=== PATIENT | male | born 1980 | race African-American/Black ===

== ENCOUNTER 2018-10-16 12:08 | Emergency (ER) | payer MEDICAID ==
[~2018-10-16] VITALS: Ht 180.3 cm; Wt 88.0 kg
[2018-10-16 12:09] VITALS: BP 117/72
== END 2018-10-16 13:30 | disposition left against medical advice (07) ==
LOC: ER 12:08
DX: M79.672 Pain in left foot (principal); V03.90XA Pedestrian on foot injured in collision with car, pick-up truck or van, unspecified whether traffic or nontraffic accident, initial encounter; Y93.01 Activity, walking, marching and hiking; Y92.9 Unspecified place or not applicable; B20 Human immunodeficiency virus [HIV] disease
CPT/HCPCS: 99283

== ENCOUNTER 2020-12-20 09:06 | Emergency (ER) | payer MEDICAID ==
[~2020-12-20] VITALS: Ht 180.3 cm; Wt 101.3 kg
[2020-12-20] MEDS ORDERED: CEFTRIAXONE SODIUM 500 MG/VIAL IM ONE (10:30)
[2020-12-20] MEDS ORDERED: PENICILLIN G BENZATHINE 2,400,000 UNITS/4ML SYR IM ONE (10:30)
[2020-12-20] MEDS ORDERED: LIDOCAINE HCL 1% 20ML VIAL (Pyxis) INJ INFIL ONE (10:30)
[2020-12-20] MEDS ORDERED: DOXYCYCLINE HYCLATE 100MG CAPSULE PO ONE (10:30)
[2020-12-20 10:55] LABS: CLARITY URINE CLEAR (CLEAR); COLOR URINE YELLOW (YELLOW); KETONES URINE TRACE (NEGATIVE); LEUKOCYTE ESTERASE URINE NEGATIVE (NEGATIVE); NITRITE URINE NEGATIVE (NEGATIVE); OCCULT BLOOD URINE NEGATIVE (NEGATIVE); PROTEIN URINE 1+ (NEGATIVE); SPECIFIC GRAVITY URINE 1.029 (1.005-1.030)
[2020-12-20] MEDS ORDERED: DOXY100T2 MT (11:03)
[2020-12-20 11:15] VITALS: BP 139/80
[2020-12-22 04:07] LABS: NEISSERIA GONORRHOEAE NAA Positive (Negative)
== END 2020-12-20 11:16 | disposition home or self-care (01) ==
LOC: ER 09:06
DX: A54.9 Gonococcal infection, unspecified (principal); A74.9 Chlamydial infection, unspecified; A53.9 Syphilis, unspecified; Z98.890 Other specified postprocedural states
CPT/HCPCS: 81003; 87491; 87591; 96372; 99284; J0561; J0696; J3490

== ENCOUNTER 2020-12-29 04:51 | Emergency (ER) | payer MEDICAID, OTHER ==
[~2020-12-29] VITALS: Ht 182.9 cm; Wt 100.0 kg
[~2020-12-29 04:51] MED LIST: DOXY100T2 MT
[2020-12-29] MEDS ORDERED: PENICILLIN G BENZATHINE 2,400,000 UNITS/4ML SYR IM ONE (05:30)
== END 2020-12-29 06:03 | disposition home or self-care (01) ==
LOC: ER 04:51
DX: Z00.00 Encounter for general adult medical examination without abnormal findings (principal); B20 Human immunodeficiency virus [HIV] disease; Z20.2 Contact with and (suspected) exposure to infections with a predominantly sexual mode of transmission; Z98.890 Other specified postprocedural states
CPT/HCPCS: 96372; 99283; J0561; Z7610

== ENCOUNTER 2022-07-20 14:43 | Emergency (ER) | payer MEDICAID, OTHER ==
[~2022-07-20] VITALS: Ht 182.9 cm; Wt 90.0 kg
[2022-07-20] MEDS ORDERED: ACETAMINOPHEN 325MG TABLET PO STA (14:57)
[2022-07-20] MEDS ORDERED: VANCOMYCIN 1G PREMIX 200 ML IV ONE (15:00)
[2022-07-20] MEDS ORDERED: PIPERACILLIN/TAZ 3.375G PREMIX 50 ML IV ONE (15:00)
[2022-07-20] MEDS ORDERED: SODIUM CHLORIDE 0.9% 1000ML BAG (SEPSIS BOLUS) IV ONE (15:00)
[2022-07-20] MEDS ORDERED: ACETAMINOPHEN 325MG TABLET PO NR (17:30)
[2022-07-20] MEDS ORDERED: PIPERACILLIN/TAZ 3.375G PREMIX 50 ML IV NR (17:30)
[2022-07-20 17:44] LABS: CHLORIDE 99 mEq/L (98-107)
[2022-07-20 17:45] LABS: BASOPHILS % 0.2 % (0.0-2.0); HEMATOCRIT. 32.7 % (42.0-52.0); HEMOGLOBIN. 11.1 g/dL (14.0-18.0); LYMPHOCYTES % 9.7 % (20.0-50.0); MEAN CORPUSCULAR HEMOGLOBIN 27.4 pg (28.0-32.0); MEAN CORPUSCULAR VOLUME 81.1 fL (80.0-94.0); MEAN PLATELET VOLUME 7.7 fl (7.4-10.4); MONOCYTES % 5.7 % (2.0-8.0); NEUTROPHILS % 84.4 % (40.0-76.0); PLATELET 257 x1000/uL (130-400); RED BLOOD CELL COUNT 4.04 mill/uL (4.7-6.1); RED CELL DISTRIBUTION WIDTH 15.3 % (11.6-14.6)
[2022-07-20] MEDS ORDERED: OSELTAMIVIR 75MG CAPSULE PO ONE (17:45)
[2022-07-20 20:00] VITALS: BP 107/67
== END 2022-07-20 21:47 | disposition short-term general hospital (02) ==
LOC: ER 15:17 → EDBEDREQSVC 16:04 → EDBEDREQTM 16:04 → EDBEDREQ 16:04 → EDBEDREQTM 19:16 → EDBEDREQ 19:16 → CANBEDREQ 19:25 → ER 21:47
DX: A41.9 Sepsis, unspecified organism (principal); J18.9 Pneumonia, unspecified organism
CPT/HCPCS: 36415; 71045; 80053; 83605; 84484; 85025; 87040; 87804; 93005; 96361; 96365; 96368; 99285; J2543; J3370; J7030

== ENCOUNTER 2022-11-17 22:07 | Emergency (ER) | payer OTHER ==
[~2022-11-17] VITALS: Ht 185.4 cm; Wt 100.0 kg
[2022-11-17 22:11] VITALS: O2SAT 98
[2022-11-17] MEDS ORDERED: AMOX1TAB16 MT (23:12)
[2022-11-17] MEDS ORDERED: TETANUS, DIPHTHERIA, PERTUSSIS VAC/PF 0.5ML (>10YR OLD) IM ONE (23:15)
[2022-11-17] MEDS ORDERED: AMOXICILLIN/POTASSIUM CLAVULANATE 875/125MG TAB PO ONE (23:15)
[2022-11-17] MEDS ORDERED: ACETAMINOPHEN 325MG TABLET PO ONE (23:15)
[2022-11-18 00:30] VITALS: BP 125/73; PULSE 89; RESP 16; TEMP 98.2
== END 2022-11-18 00:31 | disposition home or self-care (01) ==
LOC: ER 22:07
DX: S71.151A Open bite, right thigh, initial encounter (principal); S71.131A Puncture wound without foreign body, right thigh, initial encounter; Z90.49 Acquired absence of other specified parts of digestive tract; Z90.89 Acquired absence of other organs; W54.0XXA Bitten by dog, initial encounter; Y93.89 Activity, other specified; Y92.89 Other specified places as the place of occurrence of the external cause; Y99.8 Other external cause status
CPT/HCPCS: 90471; 99283; 90715; Z7610

== ENCOUNTER 2023-11-25 10:11 | Emergency (ER) | payer OTHER ==
[~2023-11-25] VITALS: Ht 182.9 cm; Wt 91.0 kg
[~2023-11-25 10:11] MED LIST changes: +AMOX1TAB16 MT
[2023-11-25 10:43] LABS: BASOPHILS % 0.4 % (0.0-2.0); EOSINOPHILS % 0.2 % (0.0-5.0); HEMATOCRIT. 33.1 % (42.0-52.0); HEMOGLOBIN. 10.8 g/dL (14.0-18.0); LYMPHOCYTES % 22.1 % (20.0-50.0); MEAN CORPUSCULAR HEMOGLOBIN 27.7 pg (28.0-32.0); MEAN CORPUSCULAR HGB CONC 32.7 g/dL (31.0-37.0); MEAN CORPUSCULAR VOLUME 84.9 fL (80.0-94.0); MEAN PLATELET VOLUME 6.5 fl (7.4-10.4); MONOCYTES % 9.3 % (2.0-8.0); PLATELET 338 x1000/uL (130-400); RED CELL DISTRIBUTION WIDTH 14.5 % (11.6-14.6); WHITE BLOOD COUNT 23.7 x1000/uL (4.5-11.0)
[2023-11-25 10:50] LABS: CHLORIDE 103 mEq/L (98-107); POTASSIUM 3.9 mEq/L (3.5-5.1); SODIUM 133 mEq/L (136-145)
[2023-11-25 10:51] LABS: CARBON DIOXIDE 22 mEq/L (21-32)
[2023-11-25 10:52] LABS: CALCIUM 8.4 mg/dL (8.7-10.4)
[2023-11-25 10:54] LABS: INR 1.1; PROTHROMBIN TIME 11.9 sec (9.6-11.0)
[2023-11-25 10:56] LABS: CREATININE 0.9 mg/dL (0.6-1.3); GLUCOSE 134 mg/dL (70-105)
[2023-11-25 10:57] LABS: UREA NITROGEN BLOOD 11 mg/dL (9-23)
[2023-11-25 10:58] LABS: ALANINE AMINOTRANSFERASE 20 IU/L (10-49); ALBUMIN 3.5 g/dL (3.2-4.8); ASPARTATE AMINOTRANSFERASE 26 IU/L (<34)
[2023-11-25 10:59] LABS: BILIRUBIN DIRECT 0.2 mg/dL (<=3.0); BILIRUBIN TOTAL 0.6 mg/dL (0.1-1.0)
[2023-11-25 11:09] LABS: PROTEIN TOTAL 8.6 g/dL (6.0-8.3); TROPONIN I HIGH SENSITIVITY < 4 ng/L (3.0-53)
[2023-11-25 12:09] LABS: LACTIC ACID 2.2 mmol/L (0.4-2.0)
[2023-11-25] MEDS: SODIUM CHLORIDE 0.9% 1,000 ML IV ONE (12:46)
[2023-11-25] MEDS: CEFTRIAXONE 1GM/50ML 50 ML IV NR (12:46)
[2023-11-25] MEDS: SODIUM CHLORIDE 0.9% 1000ML BAG (SEPSIS BOLUS) IV ONE (12:46)
[2023-11-25 12:54] VITALS: PULSE 110; RESP 16; O2SAT 92
[2023-11-25] MEDS: IPRATROPIUM BROMIDE (0.02%) 0.5MG/2.5ML NEB HHN NR (12:54)
[2023-11-25] MEDS: ALBUTEROL (0.083%) 2.5MG/3ML NEB HHN NR (12:55)
[2023-11-25] MEDS: AZITHROMYCIN 500MG/250ML 250 ML IV SCH (13:07)
[2023-11-25 15:19] LABS: CLARITY URINE CLEAR (CLEAR); COLOR URINE YELLOW (YELLOW); GLUCOSE URINE NEGATIVE (NEGATIVE); KETONES URINE NEGATIVE (NEGATIVE); LEUKOCYTE ESTERASE URINE NEGATIVE (NEGATIVE); NITRITE URINE NEGATIVE (NEGATIVE); OCCULT BLOOD URINE 1+ (NEGATIVE); PH URINE 5.5 (4.5-8.0); PROTEIN URINE 2+ (NEGATIVE); SPECIFIC GRAVITY URINE 1.022 (1.005-1.030); UROBILINOGEN URINE 0.2 E.U./dL (0.2-1.0)
[2023-11-25 15:38] LABS: BACTERIA URINE NONE SEEN; SQUAMOUS EPITHELIAL CELL URINE 1+ /lpf (RARE/1+); WBC URINE 0-2 /hpf (0-2)
[2023-11-25] MEDS: ACETAMINOPHEN 325MG TABLET PO NR (17:03)
[2023-11-25 17:47] VITALS: TEMP 37.66968
[2023-11-25 22:01] VITALS: BP 129/85; PULSE 89; RESP 22; O2SAT 97
== END 2023-11-25 22:09 | disposition short-term general hospital (02) ==
LOC: ER 10:11 → EDBEDREQ 12:59 → EDBEDREQTM 17:10 → CANBEDREQ 17:18 → ER 22:09
DX: J18.9 Pneumonia, unspecified organism (principal); J45.909 Unspecified asthma, uncomplicated; F17.200 Nicotine dependence, unspecified, uncomplicated; Z90.89 Acquired absence of other organs; Z90.49 Acquired absence of other specified parts of digestive tract
CPT/HCPCS: 80076; 80048; 81003; 83880; 83605; 83690; 85025; 85610; 87040; 84484; 36415; 71045; 94640; 93005; 96367; 96365; 96366; 99285; J0456; J0696; Z7610 ×2; J7030

== ENCOUNTER 2025-01-30 09:35 | Emergency (ER) | payer MEDICAID ==
[~2025-01-30] VITALS: Ht 180.3 cm; Wt 90.0 kg
[2025-01-30 09:37] VITALS: O2SAT 98
[2025-01-30 10:45] VITALS: PULSE 97; RESP 20
[2025-01-30] MEDS: DEXAMETHASONE 1 MG/ML ORAL SYR PO ONE (10:45)
[2025-01-30] MEDS: IBUPROFEN 600MG TABLET PO ONE (10:45)
[2025-01-30] MEDS: BENZONATATE 200MG CAPSULE PO ONE (10:45)
[2025-01-30] MEDS: IPRATROPIUM BROMIDE (0.02%) 0.5MG/2.5ML NEB HHN SCH (10:49)
[2025-01-30] MEDS: ALBUTEROL (0.083%) 2.5MG/3ML NEB HHN SCH (10:49)
[2025-01-30 11:04] LABS: BASOPHILS % 1.1 % (0.0-2.0); EOSINOPHILS % 1.3 % (0.0-5.0); HEMATOCRIT. 35.1 % (42.0-52.0); HEMOGLOBIN. 11.3 g/dL (14.0-18.0); LYMPHOCYTES % 19.7 % (20.0-50.0); MEAN PLATELET VOLUME 6.5 fl (7.4-10.4); MONOCYTES % 13.2 % (2.0-8.0); NEUTROPHILS % 64.7 % (40.0-76.0); PLATELET 270 x1000/uL (130-400); RED BLOOD CELL COUNT 4.05 mill/uL (4.7-6.1); RED CELL DISTRIBUTION WIDTH 13.5 % (11.6-14.6)
[2025-01-30] MEDS: DEXAMETHASONE 4MG TABLET PO NR (11:22)
[2025-01-30 11:26] LABS: CREATININE 0.9 mg/dL (0.6-1.3)
[2025-01-30 11:27] LABS: UREA NITROGEN BLOOD 11 mg/dL (9-23)
[2025-01-30 11:28] LABS: ASPARTATE AMINOTRANSFERASE 22 IU/L (<34)
[2025-01-30 11:29] LABS: BILIRUBIN DIRECT 0.1 mg/dL (<=3.0); BILIRUBIN TOTAL 0.5 mg/dL (0.1-1.0); PROTEIN TOTAL 8.4 g/dL (6.0-8.3)
[2025-01-30] MEDS ORDERED: BENZ200C52 MT (12:44)
[2025-01-30] MEDS ORDERED: AMOX1TAB16 MT (12:44)
[2025-01-30 13:00] VITALS: BP 115/76; PULSE 96; RESP 18; TEMP 37.3; O2SAT 100
== END 2025-01-30 13:12 | disposition home or self-care (01) ==
LOC: ER 09:35
DX: J18.9 Pneumonia, unspecified organism (principal); J45.909 Unspecified asthma, uncomplicated; Z90.49 Acquired absence of other specified parts of digestive tract; Z90.89 Acquired absence of other organs
CPT/HCPCS: 80076; 80048; 85025; 36415; 71045; 94640; 99284; J8540; Z7610 ×2; 94664